=== PATIENT | male | born 1945 | race Two or more races ===

== ENCOUNTER 2022-11-15 12:39 | Emergency (ER) | payer BC ==
[~2022-11-15] VITALS: Ht 165.1 cm; Wt 58.5 kg
[2022-11-15] MEDS ORDERED: MAG HYDROX/AL HYDROX/SIMETH 30 ML UDC ONE (13:45)
[2022-11-15] MEDS ORDERED: LIDOCAINE VISCOUS 2% UD 15 ML UDC ONE (13:45)
[2022-11-15 13:52] VITALS: BP 125/78; TEMP 97.9; O2SAT 97
[2022-11-15] MEDS ORDERED: MAG HYDROX/AL HYDROX/SIMETH 30 ML UDC PO ONE (14:00)
[2022-11-15] MEDS ORDERED: LIDOCAINE VISCOUS 2% UD 15 ML UDC MM ONE (14:00)
== END 2022-11-15 13:52 | disposition home or self-care (01) ==
LOC: ER 12:44
DX: K20.90 Esophagitis, unspecified without bleeding (principal); I10 Essential (primary) hypertension

== ENCOUNTER 2022-12-06 11:18 | Emergency (ER) | payer BC ==
[~2022-12-06] VITALS: Ht 165.1 cm; Wt 59.9 kg
[2022-12-06] MEDS ORDERED: KETOROLAC TROMETHAMINE INJ 30 MG/ML VIAL ONE (12:26)
[2022-12-06] MEDS ORDERED: KETOROLAC TROMETHAMINE INJ 30 MG/ML VIAL IV ONE (12:30)
[2022-12-06] MEDS ORDERED: TRAM50TA2 PO (13:57)
[2022-12-06 14:07] VITALS: BP 145/78; TEMP 98; O2SAT 99
== END 2022-12-06 14:11 | disposition home or self-care (01) ==
LOC: ER 11:36
DX: S22.41XA Multiple fractures of ribs, right side, initial encounter for closed fracture (principal); I10 Essential (primary) hypertension; Z79.899 Other long term (current) drug therapy; W18.39XA Other fall on same level, initial encounter; Y93.89 Activity, other specified; Y92.89 Other specified places as the place of occurrence of the external cause; Y99.8 Other external cause status
CPT/HCPCS: 99283; 96374; 71100; J1885

== ENCOUNTER → 2023-09-11 | Emergency (ER) | payer BC ==
[~2023-09-11] VITALS: Ht 165.1 cm; Wt 57.2 kg
[~2023-09-11] MED LIST: CEPH500C2 PO; METOCLOPRAMIDE HCL 10 MG/2 ML VIAL ONE; ONDA4TAB11 PO; ONDANSETRON 4 MG TAB.RAPDIS ONE; TRAM50TA2 PO
[2023-09-11] MEDS: ONDANSETRON 4 MG TAB.RAPDIS SL ONE (18:13)
[2023-09-11] MEDS: IV NS 0.9% 1,000 ML BAG IV ONE (18:13)
[2023-09-11] MEDS: METOCLOPRAMIDE HCL 10 MG/2 ML VIAL IV ONE (18:30)
[2023-09-11 18:34] LABS: BASOPHILS % (AUTO) 0.1 % (0.0-2.0); EOSINOPHILS % (AUTO) 0.3 % (0.0-6.0); HEMATOCRIT 39 % (39-51); HEMOGLOBIN 13.3 g/dL (13.5-17.5); LYMPHOCYTES # (AUTO) 0.2 K/uL (0.8-4.8); LYMPHOCYTES % (AUTO) 1.9 % (20.0-44.0); MEAN CORPUSCULAR HEMOGLOBIN 32 PG (26.0-33.0); MEAN CORPUSCULAR HGB CONC 35 g/dl (31.0-36.0); MEAN CORPUSCULAR VOLUME 91 fL (80-96); MONOCYTES # (AUTO) 0.4 K/uL (0.1-1.30); MONOCYTES % (AUTO) 4.2 % (2.0-12.0); NEUTROPHILS # (AUTO) 8.7 K/uL (1.8-8.9); NEUTROPHILS % (AUTO) 93.5 % (43.0-81.0); PLATELET COUNT (AUTO) 191 K/uL (150-450); RED BLOOD CELL COUNT(AUTO) 4.23 MIL/uL (4.5-6.0); RED CELL DISTRIBUTION WIDTH 13.2 % (11.5-15.0); WHITE BLOOD COUNT (AUTO) 9.3 K/uL (4.3-11.0)
[2023-09-11 18:53] LABS: CALCIUM, SERUM 9.6 mg/dL (8.5-10.1); CARBON DIOXIDE 25 mmol/L (21-32); CHLORIDE 104 mmol/L (98-107); CREATININE 1.1 mg/dL (0.6-1.3); GLUCOSE 125 mg/dL (74-106); POTASSIUM 3.5 mmol/L (3.5-5.1); SODIUM SERUM 137 mmol/L (136-145); UREA NITROGEN, BLOOD 32 mg/dL (7-18)
[2023-09-11 18:57] LABS: ALBUMIN 4.4 g/dL (3.4-5.0); BILIRUBIN,DIRECT 0.2 mg/dL (0.0-0.2); BILIRUBIN,TOTAL 0.6 mg/dL (0.2-1.0); TOTAL PROTEIN, SERUM 8.4 g/dL (6.4-8.2)
[2023-09-11 19:00] LABS: ALANINE AMINOTRANSFERASE 60 U/L (12-78); ALBUMIN 4.5 g/dL (3.4-5.0); ALKALINE PHOSPHATASE 104 U/L (46-116); ASPARTATE AMINOTRANSFERASE 41 U/L (15-37); BILIRUBIN,TOTAL 0.6 mg/dL (0.2-1.0); TOTAL PROTEIN, SERUM 8.5 g/dL (6.4-8.2)
[2023-09-11 19:06] LABS: PROTHROMBIN TIME 10.6 SECS (9.2-11.1)
[2023-09-11 19:41] VITALS: BP 126/79; TEMP 98; O2SAT 98
== END | disposition home or self-care (01) ==
LOC: ER 17:45
DX: R11.2 Nausea with vomiting, unspecified (principal); R19.7 Diarrhea, unspecified; I10 Essential (primary) hypertension
CPT/HCPCS: 99283; 96374; 96361; 85025; 83690; 36415; 80053; 85730; 80076; J2765; J7030; Q0162